=== PATIENT | male | born 1955 | race Caucasian/White ===

== ENCOUNTER 2016-10-03 11:02 | Emergency (ER) | payer OTHER ==
[2016-10-03 11:23] VITALS: BP 140/106
--- NOTE | 2016-10-03 11:51 | EDM.PDOC ---
ED HPI GENERAL MEDICAL PROBLEM - General Chief Complaint: Lower Extremity Injury/Pain Stated Complaint: R ANKLE INJURY Time Seen by Provider: 10/03/16 11:13 Source of Information: Reports: Patient History Limitations: Reports: No Limitations - History of Present Illness INITIAL COMMENTS - FREE TEXT/NARRATIVE: The patient is a 61-year-old male presents ED complaining of right ankle pain, swelling, deformity. He states while walking his ankle inverted and heard a pop at the time of injury. States he was able to see the sole of his shoe. Patient placed the foot back into normal anatomical position. He has been non weightbearing. States swelling has decreased with placement of ice prior to arrival. States pain is minimal without movement. No sensory deficits noted. past medical history: Hypercholesterolemia, hypertension, depression, chronic pain syndrome Current medications:Nucynta, HCTZ, Toprol succinate, aspirin, Cymbalta, simvastatin Surgical history: Right-sided facial reconstruction, back fusion L1-S1, cholecystectomy, umbilical hernia patient smokes one pack a day. Denies any alcohol or recreational drug use. Primary care provider Len Hughes Onset: Sudden Duration: Constant, Waxing/Waning Location: Reports: Lower Extremity, Right Quality: Reports: Ache, Sharp, Throbbing Severity: Mild Improves with: Reports: Other (See HPI) Worsens with: Reports: Movement Context: Reports: Activity Associated Symptoms: Reports: No Other Symptoms Treatments PROCESS DESIGN CHEMICAL ENGINEER: Reports: Other (see below) (ice) Right Ankle Pain Score (Numeric/FACES): 5 - Related Data Allergies Allergy/AdvReac Type Severity Reaction Status Date / Time corn Allergy Other Verified 10/03/16 11:23 potassium clavulanate Allergy Bleeding Verified 10/03/16 11:23 [From Augmentin] Home Meds: Home Meds Aspir-Karina 325 mg PO DAILY 11/26/15 [History] DULoxetine HCl [Cymbalta] 60 mg PO BEDTIME 11/26/15 [History] Hydrochlorothiazide 12.5 mg PO DAILY 11/26/15 [History] Metoprolol Tartrate 100 mg PO BEDTIME 11/26/15 [History] Pramipexole [Mirapex] 0.5 mg PO BEDTIME 11/26/15 [History] Simvastatin 40 mg PO BEDTIME 11/26/15 [History] Tapentadol HCl [Nucynta] 75 mg PO BEDTIME 11/26/15 [History] Acetaminophen/HYDROcodone [Sedona 325-5 MG] 1 tab PO Q6H PRN #20 tablet 10/03/16 [Rx] Past Medical History Cardiovascular History: Reports: Heart Failure, High Cholesterol, Hypertension Gastrointestinal History: Reports: Cholelithiasis, Colon Polyp Musculoskeletal History: Reports: Arthritis, Back Pain, Chronic Psychiatric History: Reports: Depression Oncologic (Cancer) History: Reports: Other (See Below) Other Oncologic History: colon tubular adenoma - Past Surgical History HEENT Surgical History: Reports: Naso-Sinus Surgery, Other (See Below) Neurological Surgical History: Reports: Lumbar Spine Musculoskeletal Surgical History: Reports: Other (See Below) Social & Family History - Family History Cardiac: Reports: Hypertension Musculoskeletal: Reports: Arthritis Neurological: Reports: CVA Psychiatric: Reports: Depression, Other (See Below) Other Psychiatric Family History: alcohol abuse Endocrine/Metabolic: Reports: Diabetes, type II - Tobacco Use Smoking Status *Q: Current Every Day Smoker Years of Tobacco use: 40 Packs/Tins Daily: 1 Used Tobacco, but Quit: No Second Hand Smoke Exposure: No - Caffeine Use Caffeine Use: Reports: Soda - Alcohol Use Days Per Week of Alcohol Use: 0 - Recreational Drug Use Recreational Drug Use: No - Living Situation & Occupation Living situation: Reports: Occupation: Employed Review of Systems - Review of Systems Review Of Systems: See Below Respiratory: Reports: No Symptoms Cardiovascular: Reports: No Symptoms Musculoskeletal: Reports: Back Pain (chronic), Leg Pain (right lower leg pain with deformity). Denies: Neck Pain Skin: Reports: Bruising (right ankle) Neurological: Reports: Difficulty Walking. Denies: Numbness, Tingling Trauma Exam - Physical Exam Exam: See Below Exam Limited By: No Limitations General Appearance: Reports: Alert, WD/WN, No Apparent Distress Head: Reports: Atraumatic, Normocephalic Ears: Reports: Hearing Grossly Normal Nose: Reports: Normal Inspection Throat/Mouth: Reports: Normal Voice, No Airway Compromise Neck: Reports: Non-Tender, Full Range of Motion, Normal Alignment, Normal Inspection Respiratory Exam: Reports: No Respiratory Distress, Lungs Clear, Normal Breath Sounds, No Accessory Muscle Use, Chest Non-Tender Cardiovascular: Reports: Normal Peripheral Pulses, Regular Rate, Rhythm Back: Reports: Full Range of Motion, Normal Inspection Neurologic: Reports: home care specialist II-XII nml As Tested, No Motor/Sensory Deficits, Alert , Normal Mood/Affect, Oriented x 3 Skin: Reports: Normal Color, Warm/Dry Comments: Swelling, bruising, mild deformity noted to the right ankle. Increased pain with palpation throughout. No sensory/motor deficits noted distally. ED TRAUMA EXTREMITY PROCEDURES - Splinting Right Lower Extremity Splint site: long posterior with stirup Pre-procedure NV status: normal Post-procedure NV status: normal Splint material: fiberglass Splint design: posterior Applied & form fitted by: provider, nurse, tech, other (PA student) Provider post-splint application NV check: NV status normal, good position Complications: No Course - Vital Signs Last Recorded V/S: Last Vital Signs Temp 97.7 F 10/03/16 11:20 Pulse 83 10/03/16 11:20 Resp 18 10/03/16 11:20 BP 140/106 H 10/03/16 11:20 Pulse Ox 92 L 10/03/16 11:20 - Orders/Labs/Meds Orders: Active Orders 24 hr Category Date Time Status EKG Documentation Completion [RC] STAT Care 10/03/16 12:31 Active Peripheral IV Care [RC] . DIRECTED Care 10/03/16 12:33 Active Ankle Min 3V Rt [CR] Stat Exams 10/03/16 11:47 Taken Chest 1V Frontal [CR] Stat Exams 10/03/16 12:31 Taken Tibia Fibula Rt [CR] Stat Exams 10/03/16 12:01 Taken DME for Discharge [COMM] Stat Oth 10/03/16 14:08 Ordered Peripheral IV Insertion Adult [OM.PC] Routine Oth 10/03/16 12:31 Ordered Labs: Laboratory Tests 10/03/16 10/03/16 Range/Units 12:43 12:43 WBC 14.31 H (4.23-9.07) K/mm3 RBC 5.86 (4.63-6.08) M/mm3 Hgb 16.7 (13.7-17.5) gm/L Hct 48.1 (40.1-51.0) % MCV 82.1 (79.0-92.2) fl MCH 28.5 (25.7-32.2) pg MCHC 34.7 (32.2-35.5) g/dl RDW Std Deviation 45.3 H (35.1-43.9) fL Plt Count 325 (163-337) K/mm3 MPV 9.6 (9.4-12.3) fl Neut % (Auto) 72.2 H (34.0-67.9) % Lymph % (Auto) 17.4 L (21.8-53.1) % [place] % (Auto) 8.6 (5.3-12.2) % Eos % (Auto) 1.1 (0.8-7.0) Baso % (Auto) 0.2 (0.1-1.2) % Neut # (Auto) 10.33 H (1.78-5.38) K/mm3 Lymph # (Auto) 2.49 (1.32-3.57) K/mm3 [place] # (Auto) 1.23 H (0.30-0.82) K/mm3 Eos # (Auto) 0.16 (0.04-0.54) K/mm3 Baso # (Auto) 0.03 (0.01-0.08) K/mm3 Sodium 142 (136-145) mEq/L Potassium 4.2 (3.5-5.1) mEq/L Chloride 108 H (98-107) mEq/L Carbon Dioxide 23 (21-32) mEq/L Anion Gap 15.2 H (5-15) BUN 28 H (7-18) mg/dL Creatinine 0.9 (0.7-1.3) mg/dL Est Cr Clr Drug Dosing 97.00 mL/min Estimated GFR (MDRD) > 60 (>60) mL/min BUN/Creatinine Ratio 31.1 H (14-18) Glucose 105 (74-106) mg/dL Calcium 9.2 (8.5-10.1) mg/dL Total Bilirubin 0.3 (0.2-1.0) mg/dL AST 10 L (15-37) U/L ALT 22 (16-63) U/L Alkaline Phosphatase 85 (46-116) U/L Total Protein 7.1 (6.4-8.2) g/dl Albumin 3.8 (3.4-5.0) g/dl Globulin 3.3 gm/dL Albumin/Globulin Ratio 1.2 (1-2) Meds: Medications Discontinued Medications Generic Name Dose Route Start Last Admin Trade Name Freq PRN Reason Stop Dose Admin Hydromorphone HCl 1 mg 10/03/16 12:33 10/03/16 12:48 Dilaudid IVPUSH 10/03/16 12:34 1 mg ONETIME ONE Administration Sodium Chloride 10 ml 10/03/16 12:31 10/03/16 12:48 Saline Flush FLUSH 10 ml ASDIRECTED PRN Administration Keep Vein Open - Re-Assessments/Exams Free Text/Narrative Re-Assessment/Exam: 10/03/16 11:50 Ordered X-ray of the right ankle with tib/fib in picture. X-ray of the ankle impression: trimalleolar fracture Discussed results of x-rays with patient. Pain is under control. Will consult technology education instructor orthopedic surgeon. 10/03/16 12:[address] Stokes technology education instructor orthopedic surgeon technology education instructor. He will review x-rays and call the E.D. back to determine course of action. 10/03/16 12:34Dr. Stokes has called back to the ED. Request labs be obtained along with EKG and chest x-ray in preparation for surgery this coming Wednesday. Request patient be placed in a posterior splint with stirrup. Instructions are to elevate to reduce swelling prior surgery. Discussed further questionable fractures of the patient's right foot on the first cuneiform and cuboid. Request CT of the foot without contrast. Order peripheral IV with Dilaudid 1 mg IVP. We'll obtain basic labs/studies in preparation for surgery including: CBC, chem 14, PT/INR, PTT, EKG and chest x- ray. Labs were reviewed. EKG sinus rhythm at a rate of 81, normal P axis, AL interval is 172, QTC 458, no acute ST changes noted. Chest x-ray:Cardiomegaly and hyperinflation present. No acute findings noted. Final interpretation pending. 10/03/16 13:47 Long posterior splint with stirup placed with normal sensory motor distally post splint placement. Pain is well controlled. Awaiting CT of the foot. Upon completion of CT will discharge home with instructions. CT of the foot impression:comminuted trimalleolar fracture. Departure - Departure Time of Disposition: 14:08 Disposition: Home, Self-Care 01 Condition: good Clinical Impression: Trimalleolar fracture of ankle, closed Qualifiers: Encounter type: initial encounter Laterality: right Qualified Code(s): S82.851A - Displaced trimalleolar fracture of right lower leg, initial encounter for closed fracture - Discharge Information Prescriptions: Acetaminophen/HYDROcodone [Sedona 325-5 MG] 1 tab PO Q6H PRN #20 tablet PRN Reason: Pain (Severe 7-10) Instructions: Ankle Fracture Referrals: Tom Hughes PA-C [Primary Care Provider] - Korey Stokes MD [Physician] - Forms: ED Department Discharge Additional Instructions: Keep extremity elevated to reduce swelling and pain. Utilize the polar ice system as instructed. For pain take ibuprofen 600mg every 6 hrs and tylenol 650 mg every 6 hrs in alternating fashion. For severe pain take norco 1 tab every 6 hours as needed. Utilize crutches to ambulate. Pump calf muscles every hour to reduce risk of blood clots. Call Dr. Osorio office Wednesday for an appt to be seen and setup surgery for Wednesday. Return to the E.D. for worsening pain, n/t, or any additional complaints. NO DRIVING. - My Orders Last 24 Hours: My Active Orders 10/03/16 11:47 Ankle Min 3V Rt [CR] Stat 10/03/16 12:01 Tibia Fibula Rt [CR] Stat 10/03/16 12:31 EKG Documentation Completion [RC] STAT Chest 1V Frontal [CR] Stat Peripheral IV Insertion Adult [OM.PC] Routine 10/03/16 12:33 Peripheral IV Care [RC] . DIRECTED 10/03/16 14:08 DME for Discharge [COMM] Stat - Assessment/Plan Last 24 Hours: My Active Orders 10/03/16 11:47 Ankle Min 3V Rt [CR] Stat 10/03/16 12:01 Tibia Fibula Rt [CR] Stat 10/03/16 12:31 EKG Documentation Completion [RC] STAT Chest 1V Frontal [CR] Stat Peripheral IV Insertion Adult [OM.PC] Routine 10/03/16 12:33 Peripheral IV Care [RC] . DIRECTED 10/03/16 14:08 DME for Discharge [COMM] Stat
[2016-10-03] MEDS ORDERED: Sodium Chloride 0.9% 10 ML Syringe FLUSH PRN (12:31)
[2016-10-03] MEDS ORDERED: HYDROmorphone 1 MG/ML Syringe IVPUSH ONE (12:33)
--- NOTE | 2016-10-03 14:50 | CT ---
CT right ankle and Technique: Multiple axial sections were obtained through the ankle and foot. Reconstructed coronal and sagittal images were obtained. Comparison: Previous plain film ankle study performed earlier on the same day (12:02 PM) Findings: Slightly comminuted posterior malleolar fracture is seen. Displacement of the posterior fragment in relation to the anterior aspect measures up to 1.7 cm. Anterior aspect which includes the rest of the tibia is displaced anterior to the talar dome. Mildly comminuted lateral malleolar fracture is seen. Fracture line is widened up to 2.1 cm. Mild lateral displacement of the distal fragment is seen as well. Anterior aspect of the fracture is in continuity with the fibular shaft which is displaced anteriorly. Medial malleolar fracture is noted which is also mildly comminuted and displaced by about 6.4 mm. Talus appears intact. Ankle appears intact. Calcaneal spurs are noted. Degenerative change is noted within the first MTP joint with degenerative cysts and joint space narrowing. Diffuse soft tissue swelling is seen. Impression: 1. Comminuted and displaced tri-malleolar fracture as noted above. 2. Other incidental findings. Diagnostic code #3
--- NOTE | 2016-10-04 07:39 | CR ---
Right tibia and fibula: Two views of the right tibia and fibula were obtained. Small linear metallic foreign body projected within the soft tissues of the medial upper aspect of the lower extremity. Ankle fracture is again noted. No proximal fracture is seen. Impression: 1. Ankle fracture again noted. 2. Foreign body within the more proximal soft tissues likely chronic. 3. No proximal tibia/fibular fracture is seen. Diagnostic code #3
--- NOTE | 2016-10-04 07:39 | CR ---
Chest: Portable view of the chest was obtained. Comparison: No previous chest x-ray. Heart is mildly enlarged. Pulmonary vessels are felt to have mild upper lobe redistribution. Lungs otherwise are clear. Bony structures are grossly intact. Impression: 1. Mildly enlarged heart with mild upper lobe pulmonary vascular redistribution. Diagnostic code #3
--- NOTE | 2016-10-04 07:39 | CR ---
Right ankle: Four views of the right ankle were obtained. Lateral and medial malleolar fractures are seen showing displacement. Large posterior malleolar fracture is also seen. The anterior portion of the tibia is displaced anteriorly in relation to the talus. Soft tissue swelling is noted. Incidental note of small plantar spur and spur at the attachment of the Achilles tendon. Impression: 1. Displaced trimalleolar fracture with partial displacement of the tibia anteriorly in relation to the talus. Diagnostic code #5
== END 2016-10-03 15:35 | disposition home or self-care (01) ==
LOC: JD.ED 11:02
DX: S82.851A Displaced trimalleolar fracture of right lower leg, initial encounter for closed fracture (principal); E78.00 Pure hypercholesterolemia, unspecified; F32.9 Major depressive disorder, single episode, unspecified; I11.0 Hypertensive heart disease with heart failure; I50.9 Heart failure, unspecified; M19.90 Unspecified osteoarthritis, unspecified site; F17.210 Nicotine dependence, cigarettes, uncomplicated; Z90.49 Acquired absence of other specified parts of digestive tract; Z91.018 Allergy to other foods; Z88.8 Allergy status to other drugs, medicaments and biological substances; Z79.82 Long term (current) use of aspirin; Z79.899 Other long term (current) drug therapy; X50.9XXA Other and unspecified overexertion or strenuous movements or postures, initial encounter
CPT/HCPCS: 29505; 36415; 71010; 73590; 73610; 73700; 80053; 85025; 93005; 96374; 99284; J1170; J7050; 29515

== ENCOUNTER 2019-09-04 11:51 | Emergency (ER) | payer OTHER ==
[2019-09-04 12:18] VITALS: BP 138/100; PULSE 91
--- NOTE | 2019-09-04 12:25 | EDM.PDOC ---
ED HPI GENERAL MEDICAL PROBLEM - General Chief Complaint: Lower Extremity Injury/Pain Stated Complaint: LT ANKLE INJURY Time Seen by Provider: 09/04/19 11:55 Source of Information: Reports: Patient - History of Present Illness INITIAL COMMENTS - FREE TEXT/NARRATIVE: Left ankle pain Onset: Sudden Duration: Getting Worse Location: Reports: Lower Extremity, Left Quality: Reports: Ache, Throbbing Severity: Moderate Improves with: Reports: None Worsens with: Reports: Movement Context: Reports: Activity Associated Symptoms: Denies: Fever/Chills (Patient presents with left ankle pain and swelling. Patient was getting out of his truck last evening and when he stepped down he had a pop in his left ankle. [place] painful but was able to continue what he was doing. He did not sleep very well last night however secondary to some pain. This morning he had some appointments in [place] and when he came back he is noted increasing swelling and more pain. He has difficulty bearing weight on it secondary to the lateral malleoli are swelling and pain. He is got a spinal stimulator and is had chronic low back pain and some hip pain that is chronic but no new knee pain or foot pain. No history of any major ankle sprains or any injuries in the past. Sensation is normal, no fifth metatarsal pain, mostly pain and noted to the lateral malleolus. No other injury noted concerns or complaints.) Left Ankle Pain Score (Numeric/FACES): 7 - Related Data Allergies Allergy/AdvReac Type Severity Reaction Status Date / Time corn Allergy Other Verified 09/04/19 12:18 MDT potassium clavulanate Allergy Bleeding Verified 09/04/19 12:18 MDT [From Augmentin] Home Meds: Home Meds DULoxetine HCl [Cymbalta] 60 mg PO BEDTIME 11/26/15 [History] Hydrochlorothiazide 12.5 mg PO DAILY 11/26/15 [History] Metoprolol Tartrate 100 mg PO BEDTIME 11/26/15 [History] Pramipexole [Mirapex] 0.5 mg PO BEDTIME 11/26/15 [History] Simvastatin 40 mg PO BEDTIME 11/26/15 [History] Tapentadol HCl [Nucynta] 75 mg PO BEDTIME 11/26/15 [History] Aspirin/Calcium Carbonate/Mag [Aspirin Buffered 325 mg Tab] 325 mg PO DAILY [History] Naproxen [EC-Naproxen] 500 mg PO BID PRN #20 tablet. 09/04/19 [Rx] Past Medical History HEENT History: Reports: Allergic Rhinitis, Other (See Below) Other HEENT History: wears glasses, dentures Cardiovascular History: Reports: Heart Failure, High Cholesterol, Hypertension Respiratory History: Reports: COPD Gastrointestinal History: Reports: Cholelithiasis, Colon Polyp Genitourinary History: Reports: None BIOLOGY MANAGER History: Reports: None Musculoskeletal History: Reports: Arthritis, Back Pain, Chronic Neurological History: Reports: None Psychiatric History: Reports: Depression Endocrine/Metabolic History: Reports: None Hematologic History: Reports: None Immunologic History: Reports: None Oncologic (Cancer) History: Reports: Other (See Below) Other Oncologic History: colon tubular adenoma Dermatologic History: Reports: None - Past Surgical History Head Surgeries/Procedures: Reports: None HEENT Surgical History: Reports: Naso-Sinus Surgery, Other (See Below) Other HEENT Surgeries/Procedures: sinus surgeries GI Surgical History: Reports: Cholecystectomy, Colonoscopy Other GI Surgeries/Procedures: tubular adenoma Neurological Surgical History: Reports: Lumbar Spine Other Neurological Surgeries/Procedures: Plates and screws to lumbar spine Musculoskeletal Surgical History: Reports: Other (See Below) Other Musculoskeletal Surgeries/Procedures:: back surgery, fusions, disectomy Social & Family History - Family History Cardiac: Reports: Hypertension Musculoskeletal: Reports: Arthritis Neurological: Reports: CVA Psychiatric: Reports: Depression, Other (See Below) Other Psychiatric Family History: alcohol abuse Endocrine/Metabolic: Reports: Diabetes, type II - Caffeine Use Caffeine Use: Reports: Soda - Living Situation & Occupation Living situation: Reports: Occupation: Employed Review of Systems - Review of Systems Review Of Systems: See Below Constitutional: Reports: No Symptoms Respiratory: Reports: No Symptoms Cardiovascular: Reports: No Symptoms GI/Abdominal: Reports: No Symptoms Musculoskeletal: Reports: Joint Pain, Joint Swelling, Other Skin: Reports: No Symptoms Neurological: Reports: No Symptoms. Denies: Numbness, Paresthesia, Tingling Psychiatric: Reports: No Symptoms (Left lateral malleolar tenderness with tenderness over the ATF ligament, drawer test is negative, eversion stress testing is negative, does have some tenderness with inversion stress test however endpoint noted. No proximal fifth metatarsal pain noted distal dorsalis pedis and posterior tibial pulses are normal, cap refill and sensation otherwise are normal. Proximal fibula is intact without pain.) ED EXAM, GENERAL - Physical Exam Exam: See Below Exam Limited By: No Limitations General Appearance: Alert, WD/WN, No Apparent Distress, Mild Distress Respiratory/Chest: No Respiratory Distress Cardiovascular: Normal Peripheral Pulses Peripheral Pulses: 1+: Posterior Tibial (L), Posterior Tibial (R), Dorsalis Pedis (L), Dorsalis Pedis (R) Extremities: Normal Inspection Neurological: Alert, Oriented Skin Exam: Warm, Dry (Left ankle is swollen, lateral malleoli are pain, ATF pain , no proximal fifth metatarsal pain, distal cap refill and sensation are normal , no proximal fibular pain, has chronic hip pain nothing that is reproducible or new, knee exam is otherwise normal. Drawer test is negative, medial eversion stress testing is negative, inversion stress testing is positive for pain but has a good endpoint.) Course - Vital Signs Last Recorded V/S: Last Vital Signs Temp 98 F 09/04/19 12:11 MDT Pulse 91 09/04/19 12:11 MDT Resp 22 H 09/04/19 12:11 MDT BP 138/100 H 09/04/19 12:11 MDT Pulse Ox 95 09/04/19 12:11 MDT - Orders/Labs/Meds Orders: Active Orders 24 hr Category Date Time Status DME for Discharge [COMM] Stat Oth 09/04/19 13:07 Ordered - Re-Assessments/Exams Free Text/Narrative Re-Assessment/Exam: 09/04/19 12:23 Suspect ankle sprain rule out fracture, infection, x-rays pending. Patient did not need any medications at present. Departure - Departure Time of Disposition: 18:55 Disposition: Home, Self-Care 01 Condition: Good Clinical Impression: Left ankle sprain Qualifiers: Encounter type: initial encounter Involved ligament of ankle: calcaneofibular ligament Qualified Code(s): S93.412A - Sprain of calcaneofibular ligament of left ankle, initial encounter - Discharge Information Prescriptions: Naproxen [EC-Naproxen] 500 mg PO BID PRN #20 tablet.dr PANIAGUA Reason: Pain (Moderate 4-6) Instructions: Ankle Sprain, Vuls-dn-Pule, Elastic Bandage and RICE Therapy Referrals: Tom Hughes PA-C [Primary Care Provider] - Forms: ED Department Discharge Additional Instructions: Rest, ice, elevate, Advil or Motrin for pain. Miki wrap and splint as tolerated. Follow-up with primary care later this week, return if any increasing pain, swelling, worsening. Sepsis Event Note - Evaluation Sepsis Screening Result: No Definite Risk - Focused Exam Vital Signs: Vital Signs Temp Pulse Resp BP Pulse Ox 09/04/19 12:11 MDT 98 F 91 22 H 138/100 H 95 Date Exam was Performed: 09/04/19 Time Exam was Performed: 19:55 - My Orders Last 24 Hours: My Active Orders 09/04/19 13:07 DME for Discharge [COMM] Stat - Assessment/Plan Last 24 Hours: My Active Orders 09/04/19 13:07 DME for Discharge [COMM] Stat
--- NOTE | 2019-09-04 12:44 | CR ---
Ankle: 4 views left ankle were obtained. Comparison: Previous left ankle exam is not available. Small plantar spur is seen. Small spur is noted off the posterior calcaneus at the attachment of the Achilles tendon. Well-corticated bony density is noted off the lateral talus presumably due to old ununited chip fracture. Minimal deformity of the talar dome is seen most likely relating to old osteochondral injury. No additional abnormality is appreciated. Impression: 1. Calcaneal spurs. 2. Probable old injury off the lateral talus and within the talar dome as described above. Diagnostic code #3 This report was dictated in MDT
== END 2019-09-04 13:08 | disposition home or self-care (01) ==
LOC: JD.ED 11:51
DX: S93.412A Sprain of calcaneofibular ligament of left ankle, initial encounter (principal); E78.00 Pure hypercholesterolemia, unspecified; I11.0 Hypertensive heart disease with heart failure; I50.9 Heart failure, unspecified; J44.9 Chronic obstructive pulmonary disease, unspecified; M19.90 Unspecified osteoarthritis, unspecified site; Z79.82 Long term (current) use of aspirin; Z79.899 Other long term (current) drug therapy; F32.9 Major depressive disorder, single episode, unspecified; Z91.018 Allergy to other foods; X50.9XXA Other and unspecified overexertion or strenuous movements or postures, initial encounter
CPT/HCPCS: 73610-26-LT; 73610-LT; 99283; 99283-25

== ENCOUNTER 2020-01-19 18:26 | Emergency (ER) | payer OTHER ==
[2020-01-19 19:09] VITALS: BP 131/75; PULSE 83
--- NOTE | 2020-01-19 19:20 | EDM.PDOC ---
ED HPI GENERAL MEDICAL PROBLEM - General Chief Complaint: General Stated Complaint: swollen jaw Time Seen by Provider: 01/19/20 19:02 Source of Information: Reports: Patient History Limitations: Reports: No Limitations - History of Present Illness INITIAL COMMENTS - FREE TEXT/NARRATIVE: This is a 64-year-old male. This evening after eating he noticed a sudden onset of swelling in the left angle of the jaw and in front of his left ear. It seemed to swell markedly with some tenderness to it and it seemed to go down into his neck slightly. He thinks he might of had decreased hearing in that left ear during this time but that has resolved. He has had no fever and no chills. He has no teeth but he does wear dentures. He comes to the ER with this complaint but when he arrives he says the swelling is gone down markedly though he still has some redness in that area and tenderness in that area. He denies any nausea vomiting he denies any cough or congestion. He does indicate that this seems to be on the outside and he did not have any swelling in his throat and did not hurt to swallow during this time. The patient was wearing his dentures when he was eating this evening. Left Face/Facial Pain Score (Numeric/FACES): 3 - Related Data Allergies Allergy/AdvReac Type Severity Reaction Status Date / Time corn Allergy Severe Other Verified 01/19/20 19:01 potassium clavulanate Allergy Severe Bleeding Verified 01/19/20 19:01 [From Augmentin] Home Meds: Home Meds DULoxetine HCl [Cymbalta] 60 mg PO BEDTIME 11/26/15 [History] Metoprolol Tartrate 100 mg PO BEDTIME 11/26/15 [History] Pramipexole [Mirapex] 0.5 mg PO BEDTIME 11/26/15 [History] Simvastatin 40 mg PO BEDTIME 11/26/15 [History] Tapentadol HCl [Nucynta] 75 mg PO BEDTIME 11/26/15 [History] Aspirin/Calcium Carbonate/Mag [Aspirin Buffered 325 mg Tab] 325 mg PO DAILY 10/05/16 [History] Naproxen [EC-Naproxen] 500 mg PO BID PRN #20 tablet. 09/04/19 [Rx] Lisinopril/Hydrochlorothiazide [Lisinopril-Hctz 20-12.5 mg Tab] 1 tab PO DAILY 01/19/20 [History] One A Day Multivitamin 1 tab PO DAILY 01/19/20 [History] cephALEXin [Keflex] 500 mg PO TID #21 capsule 01/19/20 [Rx] Past Medical History HEENT History: Reports: Allergic Rhinitis, Other (See Below) Other HEENT History: wears glasses, dentures Cardiovascular History: Reports: Heart Failure, High Cholesterol, Hypertension Respiratory History: Reports: COPD Gastrointestinal History: Reports: Cholelithiasis, Colon Polyp Genitourinary History: Reports: None HISTOLOGY TECHNOLOGIST History: Reports: None Musculoskeletal History: Reports: Arthritis, Back Pain, Chronic Neurological History: Reports: None Psychiatric History: Reports: Depression Endocrine/Metabolic History: Reports: None Hematologic History: Reports: None Immunologic History: Reports: None Oncologic (Cancer) History: Reports: Other (See Below) Other Oncologic History: colon tubular adenoma Dermatologic History: Reports: None - Past Surgical History Head Surgeries/Procedures: Reports: None HEENT Surgical History: Reports: Naso-Sinus Surgery, Other (See Below) Other HEENT Surgeries/Procedures: sinus surgeries GI Surgical History: Reports: Cholecystectomy, Colonoscopy Other GI Surgeries/Procedures: tubular adenoma Neurological Surgical History: Reports: Lumbar Spine Other Neurological Surgeries/Procedures: Plates and screws to lumbar spine Musculoskeletal Surgical History: Reports: Other (See Below) Other Musculoskeletal Surgeries/Procedures:: back surgery, fusions, disectomy Social & Family History - Family History Family Medical History: Noncontributory Cardiac: Reports: Hypertension Musculoskeletal: Reports: Arthritis Neurological: Reports: CVA Psychiatric: Reports: Depression, Other (See Below) Other Psychiatric Family History: alcohol abuse Endocrine/Metabolic: Reports: Diabetes, type II - Tobacco Use Smoking Status *Q: Current Every Day Smoker Years of Tobacco use: 48 Packs/Tins Daily: 1 - Caffeine Use Caffeine Use: Reports: Soda - Recreational Drug Use Recreational Drug Use: No - Living Situation & Occupation Living situation: Reports: Occupation: Employed ED ROS GENERAL - Review of Systems Review Of Systems: See Below Constitutional: Denies: Fever, Chills HEENT: Reports: Other (As per HPI). Denies: Rhinitis, Sinus Problem, Throat Pain, Throat Swelling Respiratory: Denies: Shortness of Breath, Cough Cardiovascular: Reports: No Symptoms Endocrine: Reports: No Symptoms GI/Abdominal: Denies: Nausea, Vomiting : Reports: No Symptoms Musculoskeletal: Reports: Other (Occasional arthritic type pain) Skin: Reports: No Symptoms Neurological: Reports: No Symptoms Psychiatric: Reports: No Symptoms Hematologic/Lymphatic: Reports: No Symptoms ED EXAM, GENERAL - Physical Exam Exam: See Below Exam Limited By: No Limitations General Appearance: Alert, WD/WN, No Apparent Distress Eye Exam: Bilateral Eye: Normal Inspection Ears: Normal External Exam, Normal Canal, Normal TMs Nose: Normal Inspection Throat/Mouth: Normal Inspection, Normal Lips, Normal Oropharynx, Normal Voice, No Airway Compromise, Other (At the left angle of the jaw and in front of the left ear there is some erythema noted and some mild swelling about 2-3 cm wide and 5 cm long. Minimal swelling noted. The oropharynx is normal, gums and left side of the back of the mouth appears normal with no swelling or redness noted. The dentures do not fit very well and seem to be somewhat loose. When he pulled them out there was no obvious abrasions or redness noted of the gums.) Head: Normocephalic Neck: Supple, Non-Tender, Full Range of Motion Respiratory/Chest: No Respiratory Distress, Lungs Clear, Normal Breath Sounds Cardiovascular: Regular Rate, Rhythm, No Murmur Back Exam: Decreased Range of Motion Extremities: Normal Inspection, Normal Range of Motion Neurological: Alert, Oriented Psychiatric: Normal Affect, Normal Mood Skin Exam: Warm, Dry Course - Vital Signs Last Recorded V/S: Last Vital Signs Temp 98.9 F 01/19/20 19:07 Pulse 83 01/19/20 19:07 Resp 20 01/19/20 19:07 BP 131/75 01/19/20 19:07 Pulse Ox 94 L 01/19/20 19:07 - Orders/Labs/Meds Orders: Active Orders 24 hr Category Date Time Status cefTRIAXone 1 GM with Lidocaine 1% 2.1 ML IM Med 01/19/20 21:00 Ordered cefTRIAXone [Rocephin] 1 gm Lidocaine 1% [Xylocaine 1%] 2.1 ml IM Q24H Medication Orders Ceftriaxone Sodium 1 gm/ (Lidocaine HCl 2.1 ml) 0 gm IM Q24H [facility] Labs: Laboratory Tests 01/19/20 Range/Units 19:30 WBC 12.07 H (4.23-9.07) K/mm3 RBC 5.77 (4.63-6.08) M/mm3 Hgb 16.3 (13.7-17.5) gm/dl Hct 48.2 (40.1-51.0) % MCV 83.5 (79.0-92.2) fl MCH 28.2 (25.7-32.2) pg MCHC 33.8 (32.2-35.5) g/dl RDW Std Deviation 44.8 H (35.1-43.9) fL Plt Count 297 (163-337) K/mm3 MPV 9.5 (9.4-12.3) fl Neut % (Auto) 69.0 H (34.0-67.9) % Lymph % (Auto) 20.4 L (21.8-53.1) % [place] % (Auto) 7.1 (5.3-12.2) % Eos % (Auto) 2.9 (0.8-7.0) Baso % (Auto) 0.3 (0.1-1.2) % Neut # (Auto) 8.32 H (1.78-5.38) K/mm3 Lymph # (Auto) 2.46 (1.32-3.57) K/mm3 [place] # (Auto) 0.86 H (0.30-0.82) K/mm3 Eos # (Auto) 0.35 (0.04-0.54) K/mm3 Baso # (Auto) 0.04 (0.01-0.08) K/mm3 Manual Slide Review Normal smear Meds: Medications Generic Name Dose Route Start Last Admin Trade Name Freq PRN Reason Stop Dose Admin Ceftriaxone Sodium 1 gm/ 0 gm 01/19/20 21:00 Lidocaine HCl 2.1 ml IM Q24H [facility] - Re-Assessments/Exams Free Text/Narrative Re-Assessment/Exam: 01/19/20 20:53 I spoke to the patient regarding his complete blood count and he has a mildly elevated white count. The swelling in his face is already gone down considerably since I saw him. I am going to give him a Rocephin shot and put him on Keflex. The patient is good with this. He will follow-up with his family doctor this coming week. Departure - Departure Time of Disposition: 20:54 Disposition: Home, Self-Care 01 Condition: Good Clinical Impression: Sialadenitis - Discharge Information *PRESCRIPTION DRUG MONITORING PROGRAM REVIEWED*: Not Applicable *COPY OF PRESCRIPTION DRUG MONITORING REPORT IN PATIENT ANDRE: Not Applicable Prescriptions: cephALEXin [Keflex] 500 mg PO TID #21 capsule Instructions: Salivary Gland Infection Referrals: Tom Hughes PA-C [Primary Care Provider] - Forms: ED Department Discharge Additional Instructions: May use warm compresses to the face to help with the soreness or the swelling, certainly take some Tylenol or ibuprofen if it begins to be sore or painful, get the prescription filled tomorrow for the antibiotics and take them as prescribed, follow-up with your family provider later this week for recheck, if not better in 48-72 hours recheck with your family provider, if you run a fever or you have marked increased swelling or redness return to the ER. Sepsis Event Note (ED) - Evaluation Sepsis Screening Result: No Definite Risk - Focused Exam Vital Signs: Vital Signs Temp Pulse Resp BP Pulse Ox 01/19/20 19:07 98.9 F 83 20 131/75 94 L - My Orders Last 24 Hours: My Active Orders 01/19/20 21:00 cefTRIAXone 1 GM with Lidocaine 1% 2.1 ML IM cefTRIAXone [Rocephin] 1 gm Lidocaine 1% [Xylocaine 1%] 2.1 ml IM Q24H - Assessment/Plan Last 24 Hours: My Active Orders 01/19/20 21:00 cefTRIAXone 1 GM with Lidocaine 1% 2.1 ML IM cefTRIAXone [Rocephin] 1 gm Lidocaine 1% [Xylocaine 1%] 2.1 ml IM Q24H
[2020-01-19] MEDS ORDERED: cefTRIAXone 1 GM, Lidocaine 1% 2.1 ML IM SCH ×2 (21:00)
== END 2020-01-19 21:05 | disposition home or self-care (01) ==
LOC: JD.ED 18:26
DX: K11.20 Sialoadenitis, unspecified (principal); I11.0 Hypertensive heart disease with heart failure; I50.9 Heart failure, unspecified; E78.00 Pure hypercholesterolemia, unspecified; J44.9 Chronic obstructive pulmonary disease, unspecified; M19.90 Unspecified osteoarthritis, unspecified site; F32.9 Major depressive disorder, single episode, unspecified; F17.210 Nicotine dependence, cigarettes, uncomplicated; Z90.49 Acquired absence of other specified parts of digestive tract; Z88.1 Allergy status to other antibiotic agents; Z91.018 Allergy to other foods; Z79.899 Other long term (current) drug therapy; Z79.82 Long term (current) use of aspirin
CPT/HCPCS: 36415; 85025; 96372; 99283; J0696; J2001

== ENCOUNTER 2024-04-21 21:15 | Emergency (ER) | payer MEDICARE, OTHER ==
[2024-04-21 22:13] LABS: HEMOGLOBIN 17.6 gm/dl (14.0-18.0); MEAN CORPUSCULAR HEMOGLOBIN 28.9 pg (28.0-32.0); MEAN CORPUSCULAR HGB CONC 33.8 g/dl (32.0-36.0); MEAN CORPUSCULAR VOLUME 85.4 fl (83.0-99.0); MEAN PLATELET VOLUME 9.5 fl (9.4-12.4); PLATELET COUNT,PLT 256 K/mm3 (150-400); RED BLOOD CELL COUNT 6.09 M/mm3 (4.52-5.90); WHITE BLOOD CELL COUNT,WBC 15.02 K/mm3 (3.9-11.3)
[2024-04-21 22:40] LABS: ALBUMIN 3.5 g/dl (3.4-5.0); ANION GAP 14.7 (5-15); BILIRUBIN TOTAL 0.4 mg/dL (0.2-1.0); BUN/CREATININE RATIO 21.8 (14-18); CALCIUM 9.3 mg/dL (8.5-10.1); CREATININE 1.1 mg/dL (0.7-1.3); EST CRCL DRUG DOSING (CG) 69.41 mL/min; POTASSIUM,K 3.7 mEq/L (3.5-5.1); PROTEIN TOTAL,TP 7.2 g/dl (6.4-8.2)
[2024-04-21 22:43] LABS: BAND PERCENT MAN 1 % (0-10); BASOPHILS PERCENT MAN 0 (0.2-1.2); EOSINOPHILS PERCENT MAN 0 % (0.8-7.0); LYMPHOCYTES % ATYPICAL MANUAL 0 %; LYMPHOCYTES PERCENT MAN 18 % (20-40); MONOCYTES PERCENT MAN 1 % (2-10); PLATELET COUNT ESTIMATE ADEQUATE
[2024-04-21 23:34] LABS: APPEARANCE,URINE SLT CLOUDY (Clear); BILIRUBIN,URINE NEGATIVE (Negative); COLOR,URINE YELLOW (Yellow); GLUCOSE,URINE TRACE (Negative); KETONES,URINE TRACE (Negative); LEUKOCYTE ESTERASE,URINE NEGATIVE (Negative); NITRITE,URINE NEGATIVE (Negative); OCCULT BLOOD,URINE NEGATIVE (Negative); PH,URINE 5.5 (5.0-8.0); PROTEIN,URINE 1+ (Negative); UROBILINOGEN,URINE 0.2 (0.2-1.0)
[2024-04-22 00:17] LABS: BACTERIA,URINE FEW /hpf (FEW); EPITHELIAL CELLS,URINE 0-5 /hpf (0-5); RBC,URINE 0-5 /hpf (0-5); WBC,URINE 0-5 /hpf (0-5)
[2024-04-22 00:18] LABS: HYALINE CASTS,URINE 0-5 /lpf (0-5); MUCUS,URINE MODERATE /hpf (FEW)
[2024-04-22 02:55] VITALS: BP 117/82; PULSE 83
== END 2024-04-22 02:54 | disposition home or self-care (01) ==
LOC: JD.ED 21:15
DX: R55 Syncope and collapse (principal); J32.0 Chronic maxillary sinusitis; I11.0 Hypertensive heart disease with heart failure; I50.9 Heart failure, unspecified; E78.00 Pure hypercholesterolemia, unspecified; J44.9 Chronic obstructive pulmonary disease, unspecified; M19.90 Unspecified osteoarthritis, unspecified site; E66.9 Obesity, unspecified; F17.210 Nicotine dependence, cigarettes, uncomplicated; R73.03 Prediabetes; Z86.16 Personal history of COVID-19; Z90.49 Acquired absence of other specified parts of digestive tract; Z88.8 Allergy status to other drugs, medicaments and biological substances; Z91.018 Allergy to other foods; Z79.82 Long term (current) use of aspirin; Z79.84 Long term (current) use of oral hypoglycemic drugs; Z79.899 Other long term (current) drug therapy; Z68.30 Body mass index [BMI] 30.0-30.9, adult
CPT/HCPCS: 36415; 71046; 71046-26; 80053; 81001; 84484; 85007; 85027; 93005; 93246; 99284